=== PATIENT | female | born 1955 | race Caucasian/White ===

== ENCOUNTER 2018-05-19 08:29 | Outpatient (CLI) | payer BC, SELFPAY | END 2018-05-19 08:49 | PROVIDERS: PCP Family Medicine; Visit Provider Internal Medicine Interventional Cardiology | DX: I48.91 Unspecified atrial fibrillation (principal); I10 Essential (primary) hypertension; J44.9 Chronic obstructive pulmonary disease, unspecified | CPT/HCPCS: 93005; 93010 ==

== ENCOUNTER 2018-12-08 07:52 | Outpatient (CLI) | payer BC, SELFPAY | END 2018-12-08 08:12 | PROVIDERS: PCP Family Medicine; Visit Provider Internal Medicine Interventional Cardiology | DX: I48.91 Unspecified atrial fibrillation (principal); I10 Essential (primary) hypertension; G47.30 Sleep apnea, unspecified | CPT/HCPCS: 93005; 93010 ==

== ENCOUNTER 2018-12-16 02:15 | Outpatient (CLI) | payer BC, SELFPAY ==
--- NOTE | 2019-01-01 15:10 | W.ZIOMONITOR ---
ZIO Patch Butcher Apprentice Note: This is a ZIO Patch ordered for the indication of palpitations. ?The predominant rhythm was normal sinus with a minimum heart rate of 46, and average heart rate of 65 and a maximal heart rate of 129 bpm. ?There were 93 episodes of supraventricular tachycardia with the longest lasting 15 seconds. ?There were rare isolated (less than 1%) supraventricular ectopic beats ?There were episodes of atrial flutter as well as atrial fibrillation accounted for 1% of total heartbeats. The longest episode lasted 3 hours with an average rate of 120 bpm. ?There were 2 episodes of ventricular tachycardia. The longest episode lasted 4 beats. ?There were rare (less than 1%) isolated ventricular ectopic beats and rare triplets. ?Patient triggered event was associated with atrial flutter Date of service: 01/01/19 Time of Service: 15:12
== END 2018-12-16 02:35 ==
PROVIDERS: PCP Family Medicine; Visit Provider Internal Medicine Interventional Cardiology
DX: R00.2 Palpitations (principal); I47.1 Supraventricular tachycardia; I48.91 Unspecified atrial fibrillation; I47.2 Ventricular tachycardia
CPT/HCPCS: 0296T

== ENCOUNTER 2019-01-28 08:36 | Outpatient (REF) | payer BC, SELFPAY ==
[2019-01-28 12:48] LABS: ALT 40 U/L (14-59); AST 17 U/L (15-37); Albumin 4.1 g/dL (3.4-5.0); Alkaline Phosphatase 67 U/L (46-116); Anion Gap 11.1 mmol/L (3-11); BUN 10 mg/dL (7-18); Bilirubin, Total 0.3 mg/dL (0.2-1.0); CO2 26.9 mmol/L (21.0-32.0); CREATININE 0.74 mg/dL (0.55-1.02); Calcium 9.5 mg/dL (8.5-10.1); Calculated LDL 134 mg/dL; Chloride 105 mmol/L (98-107); Cholesterol 207 mg/dL (<200); Glucose 103 mg/dL (74-106); HDL Cholesterol 51 mg/dL (40-60); Potassium 4.6 mmol/L (3.5-5.1); Sodium 143 mmol/L (136-145); Total Protein 7.4 g/dL (6.4-8.2); Triglyceride 110 mg/dL (<150)
--- NOTE | 2019-01-28 16:30 | SKI_PTH ---
PATIENT: Alia Baron LOC: [facility] U#:[id number] AGE/SX: 63/F ROOM: RE01/28/[address]: Andreia Kramer : 1955 BED: DIS: 01/28/2019 SPEC #: [id number] RECD: 01/29/19 12:50 STATUS: OKSANA REJoaquin #: [id number] GAIL: 01/28/19 16:[address]: Andreia Kramer DEPT: Surgical Specimen RECD BY: Alannah Ayala ENTERED: 01/29/19 12:51 SP TYPE: NITHIN SMITH DR: Sara Bland Tissues: 1 - SKIN BIOPSY(SHAVE/PUNCH) Procedures: SKIN LEVEL 4 Comments: [id number]
== END 2019-01-28 08:56 ==
LOC: NCHCN 08:36
PROVIDERS: PCP Family Medicine; Visit Provider Nurse Practitioner
DX: I10 Essential (primary) hypertension (principal); C44.519 Basal cell carcinoma of skin of other part of trunk
CPT/HCPCS: 80053; 80061; 88305

== ENCOUNTER 2019-05-22 10:41 | Outpatient (CLI) | payer BC, SELFPAY ==
--- NOTE | 2019-05-22 | DI.RAD_ITS ---
EXAM: XR CHEST 2V PA LATERAL CLINICAL HISTORY: COUGH, R05, SOB, FEVER TECHNIQUE: 2D digital imaging was performed. COMPARISON: No exams were available for comparison FINDINGS: MEDIASTINUM: Normal. HEART: Normal. PULMONARY VASCULATURE: Normal. LUNGS: Clear. PLEURAL SPACE: No pleural effusion or pneumothorax. BONE:Age-appropriate degenerative changes are seen in the spine. OTHER FINDINGS:Normal. IMPRESSION: No acute pulmonary findings. DATA REPOSITORY: RADIATION DOSE DELIVERED:
== END 2019-05-22 11:01 ==
PROVIDERS: PCP Family Medicine; Visit Provider Nurse Practitioner Family
DX: R05 Cough (principal); R50.81 Fever presenting with conditions classified elsewhere; R06.02 Shortness of breath
CPT/HCPCS: 71046

== ENCOUNTER 2019-05-22 16:37 | Outpatient (REF) | payer BC, SELFPAY ==
[2019-05-25 08:25] LABS: COVID-19 RT-PCR Result Not Detected
== END 2019-05-22 16:57 ==
LOC: NCHCN 16:37
PROVIDERS: PCP Family Medicine; Visit Provider Nurse Practitioner Family
DX: Z20.828 Contact with and (suspected) exposure to other viral communicable diseases (principal)
CPT/HCPCS: U0003

== ENCOUNTER 2022-02-19 10:20 | Outpatient (CLI) | payer BC, MEDICARE, SELFPAY | END 2022-02-19 10:21 | disposition home or self-care (01) | LOC: DI.CARD 10:21 | PROVIDERS: PCP Family Medicine; Visit Provider Internal Medicine Cardiovascular Disease | CPT/HCPCS: 93010 ==

== ENCOUNTER 2024-03-17 08:18 | Outpatient (REF) | payer BC, SELFPAY ==
--- NOTE | 2024-03-17 07:45 | SKI_PTH ---
PATIENT: Alia Baron LOC: [facility] U#:[id number] AGE/SX: 68/F ROOM: RE03/17/[address]: Bulmaro Goldstein MD : 1955 BED: DIS: 03/17/2024 SPEC #: [id number] RECD: 03/17/24 12:40 STATUS: OKSANA REJoaquin #: [id number] GAIL: 03/17/24 07:[address]: Bulmaro Goldstein DEPT: Surgical Specimen RECD BY: Alannah Ayala ENTERED: 03/17/24 12:41 SP TYPE: NITHIN SMITH DR: Victoria Quinn Tissues: 1 - SKIN BIOPSY(SHAVE/PUNCH) 2 - SKIN BIOPSY(SHAVE/PUNCH) Procedures: SKIN LEVEL 4 Comments: [id number]
== END 2024-03-17 08:19 | disposition home or self-care (01) ==
LOC: LBN 08:18
PROVIDERS: PCP General Practice; Visit Provider Otolaryngology
DX: L98.9 Disorder of the skin and subcutaneous tissue, unspecified (principal); C44.91 Basal cell carcinoma of skin, unspecified
CPT/HCPCS: 88305